=== PATIENT | female | born 1990 | race Hispanic/Latino ===

== ENCOUNTER 2022-10-04 14:59 | Emergency (ER) | payer OTHER ==
[~2022-10-04] VITALS: Ht 152.4 cm; Wt 64.0 kg
[2022-10-04] MEDS ORDERED: 0.9%NACL 1000ML 1,000 ML IV ONE ×2 (15:30→15:31)
[2022-10-04 15:39] LABS: BASOPHILS % (AUTO) 0.7 % (0.0-5.0); EOSINOPHILS % (AUTO) 0.8 % (0.0-8.0); HEMATOCRIT 38.1 % (36-48); LYMPHOCYTES % (AUTO) 28.9 % (21.0-51.0); MEAN CORPUSCULAR HEMOGLOBIN 32.8 pg (27.0-33.0); MEAN CORPUSCULAR HGB CONC 34.9 g/dL (32.0-36.0); MEAN CORPUSCULAR VOLUME 93.8 fL (79-99); MONOCYTES % (AUTO) 8.7 % (3.0-13.0); NEUTROPHILS % (AUTO) 60.6 % (40.0-77.0); PLATELET COUNT (AUTO) 230 K/uL (130-400); RED BLOOD CELL COUNT(AUTO) 4.06 MIL/uL (4.00-5.50); RED CELL DISTRIBUTION WIDTH 12.2 % (11.0-15.5); WHITE BLOOD COUNT (AUTO) 7.1 K/uL (4.8-10.8)
[2022-10-04 15:47] LABS: CREATININE 0.7 mg/dL (0.5-1.5); POTASSIUM 3.9 mmol/L (3.5-5.1)
[2022-10-04 15:58] LABS: ALBUMIN 4.1 g/dL (3.5-5.0); TOTAL PROTEIN, SERUM 7.7 g/dL (6.0-8.3)
[2022-10-04] MEDS ORDERED: ACET-66 PO (17:45)
[2022-10-04 17:52] VITALS: BP 125/78
== END 2022-10-04 18:35 | disposition home or self-care (01) ==
LOC: EDH 14:59
DX: O20.0 Threatened abortion (principal); Z3A.01 Less than 8 weeks gestation of pregnancy
CPT/HCPCS: 99284; 96360; 76801; 80053; 84702; 85025; 81025; 36415; J7030

== ENCOUNTER 2024-08-15 02:34 | Emergency (ER) | payer BC ==
[~2024-08-15] VITALS: Ht 165.1 cm; Wt 78.5 kg
[~2024-08-15 02:34] MED LIST: ACET-66 PO; IBUP-1493 PO; OMEP20TA2 PO
[2024-08-15 02:36] VITALS: TEMP 97.8
[2024-08-15 03:19] LABS: APPEARANCE,URINE CLEAR (CLEAR); BILIRUBIN,URINE NEGATIVE (NEGATIVE); COLOR,URINE YELLOW (YELLOW); GLUCOSE, URINE (UA) NEGATIVE (NEGATIVE); KETONES,URINE NEGATIVE (NEGATIVE); LEUKOCYTE ESTERASE ,URINE NEGATIVE Leu/uL (NEGATIVE); NITRATE,URINE NEGATIVE (NEGATIVE); OCCULT BLOOD,URINE NEGATIVE (NEGATIVE); PROTEIN,URINE 20 mg/dL (NEGATIVE); UROBILINOGEN,URINE 0.2 mg/dL (0.2-1.0)
[2024-08-15 03:20] LABS: ADD UA MICROSCOPIC YES
[2024-08-15 03:26] LABS: BASOPHILS # (AUTO) 0.02 K/uL (0.00-0.20); BASOPHILS % (AUTO) 0.3 % (0.0-5.0); EOSINOPHILS # (AUTO) 0.02 K/uL (0.00-0.70); EOSINOPHILS % (AUTO) 0.3 % (0.0-8.0); HEMATOCRIT 40.7 % (36-48); IMMATURE GRANULOCYTE ABSOLUTE 0.01 K/uL (0-1); LYMPHOCYTES % (AUTO) 15.8 % (21.0-51.0); MEAN CORPUSCULAR HEMOGLOBIN 33.5 pg (27.0-33.0); MEAN CORPUSCULAR HGB CONC 35.4 g/dL (32.0-36.0); MEAN CORPUSCULAR VOLUME 94.7 fL (79-99); MONOCYTES # (AUTO) 0.4 K/uL (0.1-1.0); MONOCYTES % (AUTO) 6.8 % (3.0-13.0); NEUTROPHILS # (AUTO) 4.6 K/uL (1.8-7.7); NEUTROPHILS % (AUTO) 76.6 % (40.0-77.0); PLATELET COUNT (AUTO) 218 K/uL (130-400); RED CELL DISTRIBUTION WIDTH 11.9 % (11.0-15.5)
[2024-08-15] MEDS: LACTATED RINGERS 1000ML 1,000 ML IV ONE (03:26)
[2024-08-15] MEDS: ondanSETRON 4MG INJ IVP ONE (03:26)
[2024-08-15] MEDS: PANTOPrazole 40 MG/VIAL IVP ONE (03:26)
[2024-08-15 03:35] LABS: CREATININE 0.9 mg/dL (0.5-1.0); POTASSIUM 3.5 mmol/L (3.5-5.1)
[2024-08-15 03:36] LABS: MUCUS,URINE RARE LPF (None Seen); SQUAMOUS EPITHELIAL CELL,UR RARE /HPF (0-2); WBC,URINE 0-1 /HPF (0-1)
[2024-08-15 03:39] LABS: ALBUMIN 3.8 g/dL (3.5-5.0); BILIRUBIN,TOTAL 0.6 mg/dL (0.2-1.0); TOTAL PROTEIN, SERUM 7.6 g/dL (6.0-8.3)
[2024-08-15] MEDS: DiphenhydrAMINE HCL 50 MG/ML VIAL IV ONE (03:58)
[2024-08-15] MEDS: 0.9%NACL 1000ML 1,000 ML IV ONE (03:58)
[2024-08-15] MEDS ORDERED: ONDA-243 PO (04:20)
[2024-08-15 04:23] VITALS: BP 100/62; PULSE 76; RESP 18; O2SAT 96
== END 2024-08-15 04:39 | disposition home or self-care (01) ==
LOC: EDH 02:34
DX: R11.2 Nausea with vomiting, unspecified (principal); T50.995A Adverse effect of other drugs, medicaments and biological substances, initial encounter; Y92.89 Other specified places as the place of occurrence of the external cause; Z79.899 Other long term (current) drug therapy
CPT/HCPCS: 99284; 96374; 96375; 82550; 84484; 80053; 83690; 85025; 81001; 36415; 93005; J7120; J1200; J7030; J2405; J2470

== ENCOUNTER 2025-07-25 22:55 | Emergency (ER) | payer BC ==
[~2025-07-25] VITALS: Ht 167.6 cm; Wt 70.8 kg
[~2025-07-25 22:55] MED LIST changes: +ONDA-243 PO
--- NOTE | 2025-07-25 23:05 | NUR ---
PT CARE ASSUMED AT THIS TIME
--- NOTE | 2025-07-25 23:21 | ERN ---
ED Note History of Present Illness Stated Complaint: RT FACIAL " TINGLING" Chief Complaint: Other Problems Time Seen by MD: 22:58 Dictation: This is a 34-year-old female who presented to the emergency room complaining of right facial tingling since 07/24/2025. She stated that on the day of presentation around 22 30 hours she fell asleep and she woke up feeling numbness on the right side of the face. She apparently had root canal treatment on the left as well as on the right side recently. No history of any trauma no earache. No history of any rash fever chills or rigors. No nausea vomitings. No history of any headache blurred vision diplopia facial droop speech impediment, motor weakness or seizure activity Temperature 97 pulse 98 respirations 20 blood pressure 126/80 with a pulse oximetry of 97% on room air Allergies: Coded Allergies: No Known Allergies (Unverified Allergy, Unknown, 10/04/22) Home Meds Active Scripts Ondansetron (Ondansetron Odt) 4 Mg Tab.rapdis, 4 MG PO BID PRN for N/V for 3 Days, #6 TAB Prov:SANDRA SYED MD 08/15/24 Omeprazole Magnesium (Prilosec Otc) 20 Mg Tablet.dr, 20 MG PO DAILY, #30 TAB Prov:DARIO SILVEIRA MD 08/08/23 Ibuprofen (Motrin/Advil) 800 Mg Tab, 800 MG PO TID, #30 TAB Prov:DARIO SILVEIRA MD 08/08/23 Acetaminophen (Tylenol) 500 Mg Tab, 500 MG PO Q6HPRN PRN for PAIN LEVEL 1 TO 5 for 5 Days, #30 TAB Prov:SANDRA SYED MD 10/04/22 Past Medical History Past Medical History: No Pertinent History Surgical History: None Family History: HTN, Negative Social History: Smokers (She also smokes cigarettes daily), Drugs (Marijuana use), Lives with family LMP: Jul 02, 2025 : 4 Para: 4 Aborts: 0 RN Note Reviewed/Agreed w/PFSH: Yes Review of System Dictation Constitutional: Negative for fever,chills, and weight loss Eyes: Negative for injury, pain,redness, and discharge ENT: Negative for injury, positive for pain in the teeth post root canal treatments. Cardiovascular: Negative for chest pain, palpitations, and edema Respiratory: Negative for shortness of breath, cough, and wheezing, Abdomen/GI: Negative for abdominal pain, nausea, vomiting, diarrhea, and constipation Back: Negative for injury and pain : Negative for injury, bleeding and discharge MS/Extremity: Negative for injury and deformity Skin: Negative for rash, and discoloration Neuro: Negative for headache, weakness, and seizure positive for right facial numbness, tingling, Psych: Negative for suicide ideation, homicidal ideation, and hallucinations Initial Vital Sign VS Vital Signs Date Time Temp Pulse Resp B/P (MAP) Pulse Ox O2 Delivery O2 Flow Rate FiO2 07/25/25 22:57 97.0 98 20 126/80 99 Room Air 07/25/25 23:30 0 21 Physical Exam Dictation General: awake, alert, NAD Head/Face: Normocephalic, atraumatic Eyes: PERRL, EOMI, vision at baseline ENT: oral cavity clear, TMs clear, no obvious signs of infection evidence of root canal treatments Neck: Trachea midline, supple, no nuchal rigidity Cardiovascular: RRR, normal S1/S2, No MRGs, no JVD Respiratory: CTAB, no respiratory distress, No rales or wheezes Abdomen: Soft, non-tender, non-distended, normal bowel sounds, no guarding or rebound. Skin: Warm, dry, normal turgor, no rash MS/Extremity: Pulses equal, no cyanosis, neurovascular intact, FROM Neuro: COAx4, GCS 15, strength 5/5, CN 2-12 intact, normal cerebellar exam, normal gait, Psych: Normal behavior, mood, and affect normal Extremities-trace edema without any palpable cords, Homans sign is negative Results (Laboratory/Radiology) Laboratory/Radiology Laboratory Tests Test 07/25/25 23:14 07/25/25 23:20 White Blood Count 6.5 K/uL (4.8-10.8) Red Blood Count 3.64 MIL/uL (4.00-5.50) L Hemoglobin 12.1 g/dL (12.0-16.0) Hematocrit 35.0 % (36-48) L Mean Corpuscular Volume 96.2 fL (79-99) Mean Corpuscular Hemoglobin 33.2 pg (27.0-33.0) H Mean Corpuscular Hemoglobin Concent 34.6 g/dL (32.0-36.0) Red Cell Distribution Width 11.9 % (11.0-15.5) Platelet Count 210 K/uL (130-400) Mean Platelet Volume 10.8 fL (7.5-10.5) H Immature Granulocyte % (Auto) 0.2 % (0-1) Neutrophils (%) (Auto) 52.0 % (40.0-77.0) Lymphocytes (%) (Auto) 39.7 % (21.0-51.0) Monocytes (%) (Auto) 6.7 % (3.0-13.0) Eosinophils (%) (Auto) 1.1 % (0.0-8.0) Basophils (%) (Auto) 0.3 % (0.0-5.0) Neutrophils # (Auto) 3.4 K/uL (1.8-7.7) Lymphocytes # (Auto) 2.6 K/uL (1.0-4.8) Monocytes # (Auto) 0.4 K/uL (0.1-1.0) Eosinophils # (Auto) 0.07 K/uL (0.00-0.70) Basophils # (Auto) 0.02 K/uL (0.00-0.20) Absolute Immature Granulocyte (auto 0.01 K/uL (0-1) Nucleated Red Blood Cells 0.0 % (0.0-0.19) Sodium Level 141 mmol/L (136-145) Potassium Level 3.1 mmol/L (3.5-5.1) L Chloride Level 107 mmol/L (101-111) Carbon Dioxide Level 26 mmol/L (21-32) Blood Urea Nitrogen 7 mg/dL (7-18) Creatinine 0.9 mg/dL (0.5-1.0) Glomerular Filtration Rate Calc 87 mL/min (>90) Random Glucose 119 mg/dL (70-105) H Total Calcium 8.0 mg/dL (8.5-10.1) L Serum Test, Qualitative NEGATIVE (NEGATIVE) Urine Color COLORLESS (YELLOW) Urine Appearance CLEAR (CLEAR) Urine pH 6.5 (5.0-8.0) Urine Specific [place] 1.001 (1.001-1.031) Urine Protein NEGATIVE mg/dL (NEGATIVE) Urine Glucose (UA) NEGATIVE mg/dL (NEGATIVE) Urine Ketones NEGATIVE mg/dL (NEGATIVE) Urine Occult Blood NEGATIVE (NEGATIVE) Urine Nitrate NEGATIVE (NEGATIVE) Urine Bilirubin NEGATIVE mg/dL (NEGATIVE) Urine Urobilinogen 0.2 mg/dL (0.2-1.0) Urine Leukocyte Esterase NEGATIVE Joe/uL Urine Opiates Screen NEGATIVE (NEGATIVE) Urine Barbiturates Screen NEGATIVE (NEGATIVE) Urine Phencyclidine Screen NEGATIVE (NEGATIVE) Urine Amphetamines Screen NEGATIVE (NEGATIVE) Urine Benzodiazepines Screen NEGATIVE (NEGATIVE) Urine Cocaine Screen NEGATIVE (NEGATIVE) Urine Marijuana (THC) Screen POSITIVE (NEGATIVE) H Labs Reviewed?: Yes ED Course ED Course Orders Procedure Category Date Status Time Cbc With Differential LAB 07/25/25 Complete 23:05 Basic Metabolic Panel LAB 07/25/25 Complete 23:05 Testing, LAB 07/25/25 Complete Serum Hcg 23:05 Urinalysis Profile LAB 07/25/25 Complete 23:05 Drug Screen Urine LAB 07/25/25 Complete 23:05 Potassium Bicarb/Cit PHA 07/26/25 Complete Ac 25meq (K-Lyte Ta 00:30 Ketorolac PHA 07/26/25 Complete Tromethamine 15mg/Ml 00:30 Current Medications Medications (Trade) Dose Ordered Sig/Allan Route PRN Reason Start Time Stop Time Status Last Admin Dose Admin Ketorolac Tromethamine (toRADol) 15 mg ONCE ONCE IM 07/26/25 00:30 07/26/25 00:32 DC Potassium Bicarbonate (K-Lyte Tablet Eff 25 Meq Tablet.eff) 50 meq ONCE ONCE PO 07/26/25 00:30 07/26/25 00:32 DC 07/26/25 00:20 Vital Signs Date Time Temp Pulse Resp B/P (MAP) Pulse Ox O2 Delivery O2 Flow Rate FiO2 07/26/25 00:47 98.1 80 16 121/86 99 Room Air* 0 21 07/25/25 23:30 98.1 86 15 126/82 100 Room Air* 0 21 07/25/25 22:57 97.0 98 20 126/80 99 Room Air We will perform diagnostic labs, advanced imaging and administer medications according to the patient's complaint. Once the results are available, will review and personally interpreted the labs to rule out any acute life- threatening emergency the trach require immediate intervention and treatment. I will then re-evaluate the patient after treatment and diagnostic exams have return to determine whether the patient requires any further testing, can safely be discharged home or need further admission to hospital for additional treatment and evaluation. 12:15 a.m. labs reviewed CBC with a normal limits BNP 7 showed a potassium of 3.1. Urinalysis is unremarkable. Urine test is negative. Urine drug screen is positive for cannabis. I had a long discussion with the patient and her spouse about possibilities and low potassium and patient stated that she has been stressed in her life could also be her anxiety. Potassium replacement was initiated. Patient refused and threw it away she verbalized full understanding of consequences and complications of hypokalemia. Discharge to follow up with her primary care physician Patient is reticent to any counseling on abstinence from Smoking cessation counseling was provided (3-10 min), emphasizing on cigarette smoking as a major modifiable health risk factor, significantly contributing to deaths from cancer and cardiovascular/pulmonary diseases. Patient was advised to quit smoking using motivational interviewing techniques underlying the rewards and relevance of quitting, as well as the risks of smoking and anticipated barriers to abstinence. Patient also is resistant to any counseling on cannabis abstinence. Medical Decision Making MDM Differential diagnosis: Facial tingling-possibly related to the right molar root canal treatments, neuropathy, electrolyte imbalance, nerve compression, inflammation of the facial nerve secondary to viral infection Rationale: Tests considered and ordered secondary to shared decision making include: Previous outside records reviewed: Old ER visits. Risk of complication and/or morbidity or mortality of patient management: None Medications-Per medication reconciliation Need for hospitalization: Patient does not meet criteria for hospitalization. Need for emergency major/minor surgery: No There are no social concerns with this patient. Prescription drug management Prescriptions will include symptomatic care Patient's prior external medical records from other ER visits were reviewed by me as indicated. Prior testing and results from previous visits were reviewed. Prior tests were taken into account with medical decision making and resource utilization, independent historian/historians were used to obtain complete medical history. I independently interpreted the test that were performed, results were reviewed by me and considered findings on radiology if ordered. Medical management and examination interpretation discussions were had by me with other qualified healthcare professionals as indicated for the patient's care. Problem List Problem List: (1) Right facial numbness (2) Cannabis use disorder (3) History of root canal treatment (4) Hypokalemia DX & DISP Disposition: Discharge Departure Impression: Primary Impression: Right facial numbness Additional Impressions: History of root canal treatment, Cannabis use disorder, Hypokalemia Condition: Stable Additional Instructions: Patient and the caregiver have been informed of all the diagnostic tests and the imaging conducted during the today's visit to the emergency room and has verbalized understanding of the results I have personally reviewed and interpreted all diagnostic exams performed here in the ER today as well as the vital signs documented by the nursing staff. The patient is now being discharged to home and should follow up with the primary care physician or the specialist as directed by the ER staff. Follow-up with primary care provider in 1 to 2 days. Take medications as directed here in the emergency room. Okay to continue home medications unless otherwise discussed during your visit in the emergency room today. Return to your nearest emergency room if symptoms worsen or if there is no improvement. Call 911 if you need immediate assistance. Take Tylenol or Motrin over-the-co unter as needed and if no contraindications are present. Increase oral hydration. A wound culture or urine culture was ordered here in the emergency room department please follow-up with primary care provider and advise them to get repeat ports from our facility. If you had any Bet[place] wrap/splints that were applied here, please do not remove them until you see your primary care or specialty. If the symptoms persist, patient needs to see ENT and Neurology Referrals: CARRINGTON CORRAL MD (PCP) MARVIN ABARCA MD Jul 25, 2025 23:21
[2025-07-25 23:34] LABS: IMMATURE GRANULOCYTE ABSOLUTE 0.01 K/uL (0-1); NUCLEATED RED BLOOD CELLS 0.0 % (0.0-0.19); PLATELET COUNT (AUTO) 210 K/uL (130-400); RED BLOOD CELL COUNT(AUTO) 3.64 MIL/uL (4.00-5.50); RED CELL DISTRIBUTION WIDTH 11.9 % (11.0-15.5); WHITE BLOOD COUNT (AUTO) 6.5 K/uL (4.8-10.8)
[2025-07-25 23:39] LABS: APPEARANCE,URINE CLEAR (CLEAR); GLUCOSE, URINE (UA) NEGATIVE (NEGATIVE); LEUKOCYTE ESTERASE ,URINE NEGATIVE Leu/uL (NEGATIVE); NITRATE,URINE NEGATIVE (NEGATIVE); OCCULT BLOOD,URINE NEGATIVE (NEGATIVE)
[2025-07-25 23:43] LABS: CREATININE 0.9 mg/dL (0.5-1.0); GLOMERULAR FILTR. RATE CALC 87.0 mL/min (>90); GLUCOSE,RANDOM 119.0 mg/dL (70-105); SODIUM SERUM 141.0 mmol/L (136-145); UREA NITROGEN, BLOOD 7.0 mg/dL (7-18)
[2025-07-25 23:45] LABS: ADD UA MICROSCOPIC NO; AMPHET/METH SCREEN,URINE NEGATIVE (NEGATIVE); BARBITURATE SCREEN, URINE NEGATIVE (NEGATIVE); CANNABINOID SCREEN,URINE POSITIVE (NEGATIVE); COCAINE SCREEN,URINE NEGATIVE (NEGATIVE)
--- NOTE | 2025-07-26 00:36 | NUR ---
TRIAGE EDIT TO REFLECT UDS
--- NOTE | 2025-07-26 00:43 | NUR ---
ED MD ABARCA MADE AWARE OF PT REFUSING IM MEDICATION OF KETOROLAC AT THIS TIME
[2025-07-26 00:47] VITALS: BP 121/86; PULSE 80; RESP 16; TEMP 98.1; O2SAT 99
--- NOTE | 2025-07-26 00:54 | NUR ---
ED RN UNABLE TO BRING PT'S INFORMATION FOR PYXIS DUE TO PT BEING DISCHARGED. CHARGE NURSE DHRUV MADE AWARE. KETOROLAC MEDICATION WASTED AT THIS TIME.
== END 2025-07-26 00:51 | disposition home or self-care (01) ==
LOC: EDH 22:55
DX: R20.0 Anesthesia of skin (principal); F12.90 Cannabis use, unspecified, uncomplicated; E87.6 Hypokalemia; F17.210 Nicotine dependence, cigarettes, uncomplicated; Z79.1 Long term (current) use of non-steroidal anti-inflammatories (NSAID); Z79.899 Other long term (current) drug therapy
CPT/HCPCS: 36415; 80048; 80305; 81003; 84703; 85025; 99283; J1885

== ENCOUNTER 2025-09-28 08:07 | Emergency (ER) | payer BC ==
[~2025-09-28] VITALS: Ht 167.6 cm; Wt 70.8 kg
[2025-09-28 08:27] LABS: IMMATURE GRANULOCYTE ABSOLUTE 0.01 K/uL (0-1); NUCLEATED RED BLOOD CELLS 0.0 % (0.0-0.19); PLATELET COUNT (AUTO) 248 K/uL (130-400); RED BLOOD CELL COUNT(AUTO) 4.15 MIL/uL (4.00-5.50); RED CELL DISTRIBUTION WIDTH 12.1 % (11.0-15.5); WHITE BLOOD COUNT (AUTO) 10.4 K/uL (4.8-10.8)
[2025-09-28 08:47] LABS: ASPARTATE AMINOTRANSFERASE 13.0 U/L (10-37); CREATININE 0.7 mg/dL (0.5-1.0); GLOMERULAR FILTR. RATE CALC 116.0 mL/min (>90); GLUCOSE,RANDOM 97.0 mg/dL (70-105); SODIUM SERUM 138.0 mmol/L (136-145); TOTAL PROTEIN, SERUM 7.4 g/dL (6.0-8.3); UREA NITROGEN, BLOOD 8.0 mg/dL (7-18)
--- NOTE | 2025-09-28 09:12 | ERN ---
General Chief Complaint: Nausea,Vomiting,Diarrhea Stated Complaint: N/V/D Time Seen by MD: 08:09 History of Present Illness Initial Comments 35-year-old female no past medical history remarkable presents to emergency room with a evaluation of nausea vomiting since yesterday. Patient states that she has a family gathering when [place]. She developed vomiting soon afterwards. He decided to come to the emergency room for evaluation. No medical problems. No medications taken prior to arrival. No fever. Allergies: Coded Allergies: No Known Allergies (Unverified Allergy, Unknown, 10/04/22) Home Meds Active Scripts Ondansetron (Ondansetron Odt) 4 Mg Tab.rapdis, 4 MG PO BID PRN for N/V for 3 Days, #6 TAB Prov:SANDRA SYED MD 08/15/24 Omeprazole Magnesium (Prilosec Otc) 20 Mg Tablet.dr, 20 MG PO DAILY, #30 TAB Prov:DARIO SILVEIRA MD 08/08/23 Ibuprofen (Motrin/Advil) 800 Mg Tab, 800 MG PO TID, #30 TAB Prov:DARIO SILVEIRA MD 08/08/23 Acetaminophen (Tylenol) 500 Mg Tab, 500 MG PO Q6HPRN PRN for PAIN LEVEL 1 TO 5 for 5 Days, #30 TAB Prov:SANDRA SYED MD 10/04/22 Past Medical History Past Medical History: Anxiety Past Surgical History: None Family History Family History: HTN, Negative Social History Social History: Smokers, Drugs, Lives with family Female( History) LMP: Sep 02, 2025 : 5 Para: 4 Aborts: 1 Gastrointestinal/Abdominal: (+) nausea, (+) vomiting Review of Systems: was completed, & the rest were negative. Physical Exam Physical Exam Dictation GENERAL APPEARANCE NAD, activity normal for age, well developed/ well nourished, no cyanosis, pallor, or diaphoresis. EYES lids/conjunctiva normal. EARS/NOSE/THROAT Mucous membranes moist, nares normal, lips/teeth normal uvula midline without oral pharyngeal erythema, exudate or swelling TMs normal bilaterally. No lymphangitis/lymphedema. HEAD/NECK normocephalic atraumatic, no facial trauma, neck is supple. RESPIRATORY respiratory effort normal, speaks in full sentences, no tripod position, no accessory muscle use. Lungs clear to auscultation without rhonchi, wheezes, rales CARDIAC Regular rate and rhythm, no edema. ABDOMINAL Soft, diffuse mild tenderness to the abdomen MUSCLES/EXTREMITIES No abnormal range of motion, no swelling. SKIN Warm, pink and dry. No rashes, dermatoses, petechiae or lesions. NEUROLOGICAL Speech is clear and appropriate. Normal level of consciousness. Ga it and coordination are normal. 5/5 strength in all extremities. PSYCH Normal mood and affect. Judgement/competence is appropriate Results Laboratory and Microbiology Lab and Micro Result Laboratory Tests Test 09/28/25 08:19 09/28/25 09:27 White Blood Count 10.4 K/uL (4.8-10.8) Red Blood Count 4.15 MIL/uL (4.00-5.50) Hemoglobin 13.9 g/dL (12.0-16.0) Hematocrit 39.8 % (36-48) Mean Corpuscular Volume 95.9 fL (79-99) Mean Corpuscular Hemoglobin 33.5 pg (27.0-33.0) H Mean Corpuscular Hemoglobin Concent 34.9 g/dL (32.0-36.0) Red Cell Distribution Width 12.1 % (11.0-15.5) Platelet Count 248 K/uL (130-400) Mean Platelet Volume 10.5 fL (7.5-10.5) Immature Granulocyte % (Auto) 0.1 % (0-1) Neutrophils (%) (Auto) 86.1 % (40.0-77.0) H Lymphocytes (%) (Auto) 10.0 % (21.0-51.0) L Monocytes (%) (Auto) 3.2 % (3.0-13.0) Eosinophils (%) (Auto) 0.1 % (0.0-8.0) Basophils (%) (Auto) 0.5 % (0.0-5.0) Neutrophils # (Auto) 9.0 K/uL (1.8-7.7) H Lymphocytes # (Auto) 1.0 K/uL (1.0-4.8) Monocytes # (Auto) 0.3 K/uL (0.1-1.0) Eosinophils # (Auto) 0.01 K/uL (0.00-0.70) Basophils # (Auto) 0.05 K/uL (0.00-0.20) Absolute Immature Granulocyte (auto 0.01 K/uL (0-1) Nucleated Red Blood Cells 0.0 % (0.0-0.19) White Cell Morphology Comment See comments Sodium Level 138 mmol/L (136-145) Potassium Level 4.2 mmol/L (3.5-5.1) Chloride Level 106 mmol/L (101-111) Carbon Dioxide Level 27 mmol/L (21-32) Blood Urea Nitrogen 8 mg/dL (7-18) Creatinine 0.7 mg/dL (0.5-1.0) Glomerular Filtration Rate Calc 116 mL/min (>90) Random Glucose 97 mg/dL (70-105) Lactic Acid Level 1.1 mmol/L (0.8-2.5) Total Calcium 8.7 mg/dL (8.5-10.1) Total Bilirubin 0.5 mg/dL (0.2-1.0) Direct Bilirubin 0.1 mg/dL (0.0-0.3) Aspartate Amino Transf (AST/SGOT) 13 U/L (10-37) Alanine Aminotransferase (ALT/SGPT) 15 U/L (12-78) Alkaline Phosphatase 60 U/L (50-136) Total Protein 7.4 g/dL (6.0-8.3) Albumin 3.7 g/dL (3.5-5.0) Lipase 22 U/L (16-77) Serum Test, Qualitative NEGATIVE (NEGATIVE) Urine Color YELLOW (YELLOW) Urine Appearance CLEAR (CLEAR) Urine pH 5.5 (5.0-8.0) Urine Specific [place] 1.018 (1.001-1.031) Urine Protein NEGATIVE mg/dL (NEGATIVE) Urine Glucose (UA) NEGATIVE mg/dL (NEGATIVE) Urine Ketones NEGATIVE mg/dL (NEGATIVE) Urine Occult Blood +- (TRACE) (NEGATIVE) H Urine Nitrate NEGATIVE (NEGATIVE) Urine Bilirubin NEGATIVE mg/dL (NEGATIVE) Urine Urobilinogen 0.2 mg/dL (0.2-1.0) Urine Leukocyte Esterase NEGATIVE Joe/uL Urine RBC 2-5 /HPF (0-1) H Urine WBC 2-5 /HPF (0-1) H Urine Squamous Epithelial Cells RARE /HPF (0-2) Urine Bacteria None /HPF (None Seen) MDM 35-year-old female here for evaluation of gastroenteritis. We will give IV fluids and Zofran. Labs reassuring at this time. Likely discharge home. And ED Course Orders Procedure Category Date Status Time Cbc With Differential LAB 09/28/25 Complete 08:10 Basic Metabolic Panel LAB 09/28/25 Complete 08:10 Hepatic Function Panel LAB 09/28/25 Complete 08:10 Lipase LAB 09/28/25 Complete 08:10 Testing, LAB 09/28/25 Complete Serum Hcg 08:10 Urinalysis Profile LAB 09/28/25 Complete 08:10 Lactic Acid LAB 09/28/25 Complete 08:10 0.9%Nacl 1000ml (Ns PHA 09/28/25 In Process 1000ml) 09:30 Ondansetron 4mg Inj PHA 09/28/25 Complete (Zofran 4mg Inj) 09:30 Acetaminophen 500mg PHA 09/28/25 Complete Tab (Tylenol 500mg T 10:00 Current Medications Medications (Trade) Dose Ordered Sig/Allan Route PRN Reason Start Time Stop Time Status Last Admin Dose Admin Acetaminophen (TYLenol 500MG TAB) 1,000 mg ONCE ONCE PO 09/28/25 10:00 09/28/25 10:01 DC 09/28/25 10:03 Ondansetron HCl (zoFRAN 4MG INJ) 4 mg ONCE ONCE IV 09/28/25 09:30 09/28/25 09:31 DC 09/28/25 09:22 Sodium Chloride 1,000 ml @ 0 mls/hr Q0M IV 09/28/25 09:30 10/28/25 09:29 09/28/25 09:23 Vital Signs Date Time Temp Pulse Resp B/P (MAP) Pulse Ox O2 Delivery O2 Flow Rate FiO2 09/28/25 10:03 98.1 09/28/25 09:52 98.1 58 18 92/60 99 Room Air* 0 21 09/28/25 08:09 98.8 60 18 95/66 99 Room Air 0 DX & DISP Disposition: Discharge Departure Impression: Primary Impression: Gastroenteritis Condition: Stable Scripts Ondansetron (Ondansetron Odt) 4 Mg Tab.rapdis 1 TAB PO Q6HPRN PRN for nausea/vomiting for 4 Days, #16 TAB 0 Refills Prov: SINA MILLIGAN MD 09/28/25 Referrals: CARRINGTON CORRAL MD (PCP) SINA MILLIGAN MD Sep 28, 2025 09:12
[2025-09-28] MEDS: 0.9%NACL 1000ML 1,000 ML IV SCH (09:23)
[2025-09-28 09:42] LABS: APPEARANCE,URINE CLEAR (CLEAR); GLUCOSE, URINE (UA) NEGATIVE (NEGATIVE); LEUKOCYTE ESTERASE ,URINE NEGATIVE Leu/uL (NEGATIVE); NITRATE,URINE NEGATIVE (NEGATIVE); OCCULT BLOOD,URINE +- (TRACE) (NEGATIVE)
[2025-09-28 09:52] LABS: ADD UA MICROSCOPIC YES
[2025-09-28 09:55] LABS: SQUAMOUS EPITHELIAL CELL,UR RARE /HPF (0-2)
[2025-09-28 10:03] VITALS: TEMP 98.1
[2025-09-28] MEDS ORDERED: ONDA-243 PO (10:29)
[2025-09-28 11:10] VITALS: BP 91/49; PULSE 53; RESP 16; TEMP 98.1; O2SAT 97
== END 2025-09-28 11:39 | disposition home or self-care (01) ==
LOC: EDH 08:07
DX: K52.9 Noninfective gastroenteritis and colitis, unspecified (principal); F17.200 Nicotine dependence, unspecified, uncomplicated; Z79.1 Long term (current) use of non-steroidal anti-inflammatories (NSAID); Z79.899 Other long term (current) drug therapy
CPT/HCPCS: 99284; 96374; 96361 ×2; 80076; 80048; 84703; 83690; 85025; 83605; 81001; 36415; J7030; J2405